=== PATIENT | female | born 1970 | race Caucasian/White ===

== ENCOUNTER 2018-07-07 06:07 | Emergency (ER) | payer OTHER, SELFPAY ==
[2018-07-07 06:08] VITALS: BP 178/89; PULSE 77; RESP 13; TEMP 36.7; O2SAT 98; BMI 39.2
--- NOTE | 2018-07-07 06:14 | EKG12_ITS ---
Test Reason : ARRHYTHMIA Blood Pressure : / mmHG Vent. Rate : 074 BPM Atrial Rate : 074 BPM P-R Int : 156 ms QRS Dur : 068 ms QT Int : 398 ms P-R-T Axes : 037 015 060 degrees QTc Int : 441 ms Normal sinus rhythm Nonspecific ST and T wave abnormality Abnormal ECG Confirmed by ELI TOLEDO, DONAL ([id number]), staff editor OLIVER DONG ([id number]) on 07/14/2018 2:22:14 PM Referred By: TATE Confirmed By:DONAL BENITEZ MD
--- NOTE | 2018-07-07 06:29 | RAD_ITS ---
STUDY: X-RAY CHEST REASON FOR EXAM: Female, 48 years old. Palpitations TECHNIQUE: Frontal and lateral views of the chest. COMPARISON: 10/06/2016 FINDINGS: The lungs are clear and expanded. There is no demonstrated pleural abnormality. Normal size heart. Normal mediastinum and alex. Normal visualized pulmonary arteries. Normal visualized aortic arch and descending thoracic aorta. Normal visualized thoracic spine. Normal visualized ribs, clavicles, and shoulders. There is no demonstrated abnormality of the visualized soft tissue structures of the upper abdomen. RAD/Chest PA and Lateral IMPRESSION: Normal x-ray examination of the chest. Electronically Signed: Jung Lynn MD at 7:11 EDT Tel , Service support ,
--- NOTE | 2018-07-07 06:29 | EKG12_ITS ---
Test Reason : CHEST PAIN Blood Pressure : / mmHG Vent. Rate : 070 BPM Atrial Rate : 070 BPM P-R Int : 164 ms QRS Dur : 066 ms QT Int : 400 ms P-R-T Axes : 009 -23 145 degrees QTc Int : 432 ms Normal sinus rhythm Septal infarct , age undetermined Inferior infarct , age undetermined Abnormal ECG Confirmed by ELI TOLEDO, DONAL ([id number]), scientific publications editor OLIVER DONG ([id number]) on 07/14/2018 2:04:57 PM Referred By: AMELIE Confirmed By:DONAL BENITEZ MD
--- NOTE | 2018-07-07 06:30 | ED.VISSUMM ---
- ER Visit Summary Date of Service: 07/07/18 Chief Complaint: Palpitations History of Present Illness: The patient is a 48 F who presents for palpitations overnight. Patient states last night she had several episodes where she felt like her heart was skipping a beat and racing. This morning she is having pain between her shoulder blades, generalized weakness and chest tightness. She states that she has had episodes of palpitations in the past, but over the last week they have been more prominent and now she had multiple more prolonged episodes during the night. She has had mild URI symptoms including a current ear infection that started last week, rhinorrhea, chills, and sweaty palms today. She took one regular aspirin last night and one this morning. She denies shortness of breath, abdominal pain, nausea or vomiting, dizziness or lightheadedness, fever. She feels generally weak. Patient denies history of coronary artery disease, hypertension, diabetes, high cholesterol or any other medical problems other than the heart spells where her heart skips beats periodically. She also has chronic ruptured left TM since childhood. Physical Examination: Vital signs: afebrile, hypertensive at 170/100, no hypoxia on room air General: well nourished, well developed, in no distress Skin: warm, dry, no rash, no pallor, no diaphoresis HEENT: normocephalic and atraumatic; PERRL, EOMI, moist mucous membranes Cardiovascular: regular rate and rhythm without murmurs, no peripheral edema, 2+ pulses all distal extremities Respiratory: No increased work of breathing, lungs are clear to auscultation bilaterally, no rales, rhonchi or wheezing Abdominal: Abdomen is soft, nontender with normoactive bowel sounds, no guarding or rebound, no masses MSK: Moves all extremities, no deformities, normal strength Neuro: Awake and alert, oriented ?4. No facial droop, sensation and motor function intact and symmetric Test Results: Abnormal Lab Results 07/07/18 07/07/18 07/07/18 06:10 06:10 06:10 WBC 9.9 RBC 4.45 Hgb 13.8 Hct 41.3 MCV 92.8 MCH 31.0 MCHC 33.4 RDW 13.2 RDW Differential 43.8 Plt Count 322 MPV 9.1 Immature Gran % (Auto) 0.200 Neut % (Auto) 71.1 H Lymph % (Auto) 19.6 [place] % (Auto) 7.6 Eos % (Auto) 1.3 Baso % (Auto) 0.2 Absolute Neuts (auto) 7.0 Absolute Lymphs (auto) 1.93 Total Counted Not Reportable PT 13.5 INR 1.0 APTT 29.1 Sodium 138 Potassium 3.8 Chloride 102 Carbon Dioxide 28.0 Anion Gap 8 BUN 13 Creatinine 0.67 Estim Creat Clear Calc 95.08 Est GFR (MDRD) Af Amer 121 Est GFR (MDRD) Non-Af 100 BUN/Creatinine Ratio 19.5 Glucose 94 Calcium 8.8 Troponin I 0.041 Clinical Impression(s) from Imaging Studies Chest X-Ray 07/07/18 06:29 IMPRESSION: Normal x-ray examination of the chest. Electronically Signed: Jung Lynn MD at 7:11 EDT Tel , Service support , Medications Given Sodium Chloride () 1,000 mls @ 250 mls/hr IV .Q4H KELBY Last Admin: 07/07/18 06:37 Dose: 250 mls/hr Discontinued Medications Nitroglycerin (Nitrostat) 0.4 mg SUBLINGUAL Q5M KELBY Stop: 07/07/18 06:41 Last Admin: 07/07/18 07:03 Dose: Not Given Admin: 07/07/18 07:03 Dose: Not Given Admin: 07/07/18 06:38 Dose: 0.4 mg Emergency Department Course and Treatment: Patient took aspirin prior to presentation. She is currently having 1/10 chest tightness and thus was given nitro. Her chest tightness with radiation to shoulder blades is concerning for possible cardiac etiology. Patient has very mild discomfort, and description of her symptoms does not sound as concerning for aortic dissection. She has symmetric pulses all distal extremities. She is also having URI symptoms along with her other symptoms. Chest pain workup performed. EKG showed sinus rhythm without ischemia or ectopy, unchanged from prior. Initial troponin of 0.041. When compared to patient's labs from 1 year ago during her chest pain workup, her troponin was 0.04 at that time as well. No leukocytosis, electrolyte derangements, or other lab abnormalities. Patient had resolution of her chest tightness after 1 nitro. Chest x-ray showed no infiltrates or effusions or other abnormalities. Patient has a HEART score of 3 for age, story, and risk factors of obesity; and patient was amenable to a 3-hour EKG and troponin repeat. 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 She is using homeopathic remedies at home. Patient will be signed out to the morning physician for follow-up of EKG and troponin. Final disposition pending these results. If repeat EKG and troponin are unchanged, patient is amenable to following up with her primary care doctor for outpatient stress test. Treatment Plan: [] Disposition: [] Impression: Chest tightness, intermittent palpitations, ruptured L TM This note was generated with [employer] dictation software. It may contain incorrect words, spelling, and punctuation that were not noted in review of the chart prior to signing ED Disposition - Plan for ED Patient: Chief Complaint: Palpitations Referrals: Mike Fonseca DO [Primary Care Provider] -
[2018-07-07] MEDS: 0.9% Normal Saline 1,000 ML 250 ML IV (06:37)
[2018-07-07 06:38] VITALS: BP 169/94; PULSE 75
[2018-07-07 06:39] VITALS: O2SAT 96
[2018-07-07 06:39] LABS: Absolute Lymphocyte Count 1.93 X10^3/ul (0.83-4.51); Basophil# 0.02 X10^3/uL; Basophil% 0.2 % (0-1); Eosinophil# 0.13 X10^3/uL; Eosinophils% 1.3 % (0-5); Hematocrit 41.3 % (37-47); Hemoglobin 13.8 g/dl (12.0-15.0); Lymphocyte # 1.93 X10^3/ul (4.0); Lymphocyte % 19.6 % (19-41); Mean Corp Hgb Conc 33.4 g/gl (32-36); Mean Corpuscular Volume 92.8 fL (81-99); Mean Platelet Vol. 9.1 fl (6.2-12.0); Monocyte# 0.75 X10^3/uL; Monocyte% 7.6 % (0-10); Neutrophil # 7.02 X10^3/uL (2.7-7.7); Neutrophil % 71.1 % (47-70); Platelet Count 322 K/mm3 (150-450); RBC Distribution Width CV 13.2 % (11.6-14.6); RBC Distribution Width SD 43.8 fl (35.1-43.9); Red Blood Count 4.45 M/mm3 (4.2-5.4); White Blood Count 9.9 K/mm3 (4.4-11.0)
[2018-07-07 06:50] LABS: BUN 13 mg/dL (7-18); Creatinine, Serum 0.67 mg/dL (0.55-1.02); Glucose 94 mg/dL (74-106)
[2018-07-07 06:51] LABS: Anion Gap 8 (5-15); BUN/Creat Ratio 19.5 RATIO (10-20); Calcium,Total 8.8 mg/dL (8.5-10.1); Chloride 102 mmol/L (98-107); EST Glomerular Filtration Rate 100 mL/min (>60); Est Glom Filt Rate - Afr Amer 121 mL/min (>60); Estimated Creatinine Clearance 95.08 ml/min; Potassium 3.8 mmol/L (3.5-5.1); Sodium Level 138 mmol/L (136-145)
[2018-07-07 06:52] LABS: POSITIVE COUNT NO; POSITIVE DIFFERENTIAL NO; POSITIVE MORPHOLOGY NO
[2018-07-07 06:55] LABS: Prothrombin Time (Protime)PT. 13.5 SECONDS (11.7-14.9)
[2018-07-07 06:56] LABS: Partial Thromboplast Time 29.1 Seconds (24.1-36.2)
[2018-07-07 07:51] VITALS: BP 148/82; PULSE 66; RESP 12; O2SAT 95
--- NOTE | 2018-07-07 09:10 | EKG12_ITS ---
Test Reason : PALPS Blood Pressure : / mmHG Vent. Rate : 074 BPM Atrial Rate : 074 BPM P-R Int : 166 ms QRS Dur : 072 ms QT Int : 426 ms P-R-T Axes : 033 009 058 degrees QTc Int : 472 ms Normal sinus rhythm Septal infarct , age undetermined Abnormal ECG Confirmed by ELI TOLEDO, DONAL ([id number]), tape editor OLIVER DONG ([id number]) on 07/14/2018 2:05:17 PM Referred By: AMELIE Confirmed By:DONAL BENITEZ MD
[2018-07-07 09:18] VITALS: BP 148/82; PULSE 68; RESP 12; O2SAT 96
--- NOTE | 2018-07-07 10:22 | ED.VISSUMM ---
- ER Visit Summary Date of Service: 07/07/18 Chief Complaint: [] History of Present Illness: The patient is a 48 F [] Physical Examination: [] Test Results: [] Emergency Department Course and Treatment: [] Treatment Plan: [] Disposition: [] Impression: [] This note was generated with [employer] dictation software. It may contain incorrect words, spelling, and punctuation that were not noted in review of the chart prior to signing ED Disposition - Plan for ED Patient: Disposition: Home or Assisted Living Chief Complaint: Palpitations Instructions: ED Palpitations Referrals: Mike Fonseca DO [Primary Care Provider] - 1 Week
[2018-07-07 10:29] VITALS: BP 135/89; PULSE 76; RESP 15; O2SAT 98
== END 2018-07-07 10:30 | disposition home or self-care (01) ==
PROVIDERS: Emergency Provider Emergency Medicine; Family Provider Family Medicine; PCP Family Medicine
DX: R07.89 Other chest pain (principal); R00.2 Palpitations; H72.92 Unspecified perforation of tympanic membrane, left ear; H66.90 Otitis media, unspecified, unspecified ear; R53.1 Weakness; E66.9 Obesity, unspecified
CPT/HCPCS: 71046; 80048; 84484; 85025; 85610; 85730; 93005; 96360; 96361; 99284; J7030; A4216

== ENCOUNTER 2018-12-16 17:56 | Emergency (ER) | payer OTHER, SELFPAY ==
[2018-12-16 17:56] VITALS: BP 169/104; PULSE 83; RESP 16; TEMP 36.4; O2SAT 97; BMI 37.8
--- NOTE | 2018-12-16 18:04 | EKG12_ITS ---
Test Reason : SOB Blood Pressure : / mmHG Vent. Rate : 076 BPM Atrial Rate : 076 BPM P-R Int : 168 ms QRS Dur : 076 ms QT Int : 426 ms P-R-T Axes : 046 017 059 degrees QTc Int : 479 ms Normal sinus rhythm Normal ECG Confirmed by CONY ARTIS ([id number]), editor managing director OLIVER DONG ([id number]) on 12/20/2018 5:00:15 PM Referred By: MANAV Confirmed By:CONY ARTIS
--- NOTE | 2018-12-16 18:04 | RAD_ITS ---
STUDY: X-RAY CHEST REASON FOR EXAM: Female, 48 years old. Chest tightness and shortness of breath TECHNIQUE: Single frontal view of the chest. COMPARISON: July 07, 2018 FINDINGS: The lungs are clear and expanded. There is no demonstrated pleural abnormality. Normal size heart. Normal mediastinum and alex. Normal visualized pulmonary arteries. Normal visualized aortic arch and descending thoracic aorta. Normal visualized thoracic spine. Normal visualized ribs, clavicles, and shoulders. There is no demonstrated abnormality of the visualized soft tissue structures of the upper abdomen. RAD/Chest 1 View (Portable) IMPRESSION: Normal x-ray examination of the chest. Electronically Signed: Reinier Lawrence MD at 18:54 EDT , Service support ,
[2018-12-16 18:07] VITALS: O2SAT 98
--- NOTE | 2018-12-16 18:07 | ED.DCSUM_ITS ---
- ER Visit Summary Date of Service: 12/16/18 Chief Complaint: Shortness of breath and chest tightness History of Present Illness: The patient is a 48 F who presents with shortness of breath and chest tightness. It started earlier today. She feels a tightness in the left side of her chest. It does not radiate. Nothing makes it better or worse. She feels a little bit short of breath with this. She has had a cough for the past month. Is been nonproductive. She also had a dizzy spell about 6 hours ago at home. She has an appointment with cardiology on Thursday. She has been seen a couple of times and has had negative cardiac workups in the past. She was told that she has hypertension but is currently not on any medications for it. Physical Examination: Vital signs reviewed. HEENT exam unremarkable. Heart is regular rate and rhythm without murmurs. Lungs are clear to auscultation. Abdomen is soft and nontender. Extremities reveal no edema. Peripheral pulses are equal. Skin exam normal. Neurologic exam normal. Test Results: EKG is normal sinus rhythm with rate of 76. No ST changes. Laboratory studies are normal. Troponin 0 0.035. Chest x-ray normal Emergency Department Course and Treatment: The patient's troponin rating as the last when she has ever had documented here. She took aspirin at home. Her PAMELA score is 1. She is PERC negative. I do not feel that this is cardiac in natu re. I do not feel it is a PE. She has cardiology follow-up on Thursday. She is to keep this appointment and will follow-up then. Treatment Plan: [] Disposition: Discharge Impression: Chest pain This note was generated with [employer] dictation software. It may contain incorrect words, spelling, and punctuation that were not noted in review of the chart prior to signing ED Disposition - Plan for ED Patient: Referrals: Mike Fonseca DO [Primary Care Provider] -
[2018-12-16 18:20] LABS: Absolute Lymphocyte Count 2.24 X10^3/ul (0.83-4.51); Absolute Neutrophil Count 5.3 X10^3/uL (2.0-7.7); Basophil# 0.02 X10^3/uL; Basophil% 0.2 % (0-1); Eosinophil# 0.13 X10^3/uL; Eosinophils% 1.6 % (0-5); Hematocrit 38.4 % (37-47); Hemoglobin 12.7 g/dl (12.0-15.0); Lymphocyte # 2.24 X10^3/ul (4.0); Lymphocyte % 27.4 % (19-41); Mean Corp Hgb Conc 33.1 g/gl (32-36); Mean Corpuscular Hgb 29.9 pg (27.0-32.0); Mean Corpuscular Volume 90.4 fL (81-99); Mean Platelet Vol. 8.9 fl (6.2-12.0); Monocyte% 6.1 % (0-10); Neutrophil # 5.28 X10^3/uL (2.7-7.7); Neutrophil % 64.5 % (47-70); Platelet Count 329 K/mm3 (150-450); RBC Distribution Width SD 42.4 fl (35.1-43.9); Red Blood Count 4.25 M/mm3 (4.2-5.4); White Blood Count 8.2 K/mm3 (4.4-11.0)
[2018-12-16 18:21] LABS: POSITIVE COUNT NO; POSITIVE DIFFERENTIAL NO; POSITIVE MORPHOLOGY NO
[2018-12-16 18:48] LABS: Anion Gap 8 (5-15); BUN 13 mg/dL (7-18); BUN/Creat Ratio 19.8 RATIO (10-20); Chloride 103 mmol/L (98-107); Creatinine, Serum 0.66 mg/dL (0.55-1.02); EST Glomerular Filtration Rate 102 mL/min (>60); Est Glom Filt Rate - Afr Amer 123 mL/min (>60); Estimated Creatinine Clearance 96.52 ml/min; Glucose 88 mg/dL (74-106); Potassium 3.5 mmol/L (3.5-5.1); Sodium Level 137 mmol/L (136-145)
--- NOTE | 2018-12-16 19:19 | ED.DEP ---
ED Disposition - Plan for ED Patient: Disposition: Home or Assisted Living Instructions: ED Chest Pain Atypical Unkn Cause Referrals: Mike Fonseca DO [Primary Care Provider] -
[2018-12-16 19:25] VITALS: BP 130/73; PULSE 74; RESP 14; O2SAT 97
== END 2018-12-16 19:26 | disposition home or self-care (01) ==
PROVIDERS: Emergency Provider Emergency Medicine; Family Provider Family Medicine; PCP Family Medicine
DX: R07.9 Chest pain, unspecified (principal); R06.00 Dyspnea, unspecified; R05 Cough; R06.02 Shortness of breath; I10 Essential (primary) hypertension
CPT/HCPCS: 71045; 80048; 84484; 85025; 93005; 99285; A4216

== ENCOUNTER → 2018-12-27 10:03 | Outpatient (CLI) | payer OTHER, SELFPAY ==
[2018-12-20 15:52] VITALS: BMI 39.0
[2018-12-27 11:27] LABS: AST(SGOT) 15 U/L (15-37); Alanine Aminotransfer ALT/SGPT 28 U/L (13-56); Albumin, Serum 3.7 g/dL (3.2-5.0); Alkaline Phosphatase 82 U/L (45-117); Bilirubin, Direct 0.06 mg/dL (0.00-0.30); Cholesterol 194 mg/dL (200); Globulin 4.1 g/dL (2.2-4.2); High Density Lipoprotein 57 mg/dL; Protein, Total 7.8 g/dL (6.4-8.2); Triglycerides 113 mg/dL; Very Low Density Lipoprotein 23 mg/dL (5-40)
== END ==
PROVIDERS: Family Provider Family Medicine; PCP Family Medicine; Referring Provider Internal Medicine Cardiovascular Disease; Visit Provider Internal Medicine Cardiovascular Disease
DX: R07.9 Chest pain, unspecified (principal); Z13.220 Encounter for screening for lipoid disorders
CPT/HCPCS: 36415; 80061; 80076

== ENCOUNTER → 2019-01-06 | Outpatient (CLI) | payer OTHER, SELFPAY ==
[2018-12-20 15:52] VITALS: BMI 39.0
--- NOTE | 2019-01-06 09:50 | ECHOCS_ITS ---
Reason For Study: CP Procedure This was a 2D Doppler, Color Flow transthoracic echocardiogram. Exam performed in department. Left Ventricle Normal size and thickness. The estimated ejection fraction is 75 %. Stage 1 diastolic dysfunction. No regional wall motion abnormalities noted. Right Ventricle Normal size and thickness. Normal systolic function. Atria Normal left atrium. Normal right atrium. Normal atrial septum. Mitral Valve The mitral valve is structurally normal. No prolapse or stenosis seen. Trivial mitral valve insufficiency. Tricuspid Valve Normal tricuspid valve. Unable to estimate RV systolic pressure due to inadequate jet, pulmonary artery pressure probably normal. Aortic Valve Normal aortic valve. Trisinus/trileaflet aortic valve. Pulmonic Valve Normal pulmonic valve. Great Vessels Normal aortic root. Normal arch. Normal inferior vena cava. Inferior vena cava collapse with sniff. Pericardium/Pleural No pericardial effusion. Medication 22 gauge I.V. with prn adaptor inserted into right arm. Diluted definity 1.5ml given slow IV push to enhance endocardial definition. MMode/2D Measurements & Calculations LVIDd: 4.0 cm IVSd: 1.6 cm Ao root diam: 3.2 cm LVIDs: 2.2 cm LVPWd: 1.3 cm LA dimension: 4.2 cm RVDd: 3.5 cm FS: 45.1 % LAV(MOD-bp): 78.2 ml LA A4 area: 21.8 cm2 RA A4 area: 15.6 cm2 LAV(MOD-bp) Indexed: 36.9 ml/m2 LAV(MOD-sp2): 88.3 ml LAV(MOD-sp4): 69.9 ml Time Measurements MV dec time: 0.27 sec Doppler Measurements & Calculations MV E max zachariah: 71.7 cm/sec Lat Peak E' Zachariah: 11.1 cm/sec Med Peak E' Zachariah: 10.2 cm/sec MV A max zachariah: 81.2 cm/sec E/E' lat: 6.5 E/E' med: 7.0 MV E/A: 0.88 MV V2 max: 104.9 cm/sec MV P1/2t max zachariah: 91.3 cm/sec Ao V2 max: 143.8 cm/sec MV max P.4 mmHg MV P1/2t: 73.4 msec Ao max P.3 mmHg MV V2 mean: 56.6 cm/sec MV dec slope: 364.4 cm/sec2 Ao V2 mean: 89.8 cm/sec MV mean P.5 mmHg Ao mean P.7 mmHg MV V2 VTI: 28.5 cm MVA(P1/2t): 3.0 cm2 Ao V2 VTI: 29.0 cm LV V1 max: 117.3 cm/sec PA V2 max: 110.7 cm/sec LV V1 max P.5 mmHg LV V1 mean P.8 mmHg LV V1 mean: 78.7 cm/sec LV V1 VTI: 27.6 cm Interpretation Summary The estimated ejection fraction is 75 %. Stage 1 diastolic dysfunction. Trivial mitral valve insufficiency. Unable to estimate RV systolic pressure due to inadequate jet, pulmonary artery pressure probably normal. The study was technically difficult. There is no comparison study available. Contrast injection was performed. Ordering Physician: Jame Chavez Referring Physician: Jame Chavez Performed By: Song Santos RCS
--- NOTE | 2019-01-06 09:50 | STEWCON_ITS ---
Reason For Study: CHEST PAIN Stress Results Protocol: Baljinder Protocol WITH DEFINITY Maximum Predicted HR: 171 bpm Target HR: 145 bpm % Maximum Predicted HR: 108 % DurationHeart Rate Stage (mm:ss) (bpm) BP Comment BASELINE 85 150/701.5CC DEFINITY STAGE 1 3:00 139 182/104 STAGE 2 3:00 160 190/94 STAGE 3 3:00 184 200/1001 CC DEFINITY RECOVERY 110 160/88 Stress Duration: 9:00 mm:ss Maximum Stress HR: 184 bpm Baseline Echocardiogram Findings The estimated ejection fraction is 65 %. Stress Echo Wall motion Data Resting WM Intermediate WM Stress WM Resting Wall Motion Wall Motion Stress No regional wall motion No regional wall motion abnormalities noted. abnormalities noted. EKG Data The baseline ECG displays normal sinus rhythm. The patient exercised according to the regular Baljinder protocol for a total duration of 9:00. The maximum heart rate attained was 187 beats per minute. This was 109% of maximum predicted heart rate. The patient exercised into stage 4 of the Baljinder protocol. At peak exercise, upsloping ST changes only were noted, which did not meet the criteria for ischemia. No clinical angina was noted. Interpretation Summary The estimated ejection fraction is 65 %. Normal, adequate, treadmill echocardiogram. Negative for ischemia by EKG and echocardiographic criteria. No anginal symptoms noted. Rare PVC noted. Hypertensive blood pressure response to exercise. Test terminated due to the attainment of target heart rate and dyspnea. Final LVEF is 75%. Decreased sensitivity due to poor echo windows requiring Definity enhancing agent. No complications The study was technically difficult. Contrast injection was performed. Ordering Physician: Jame Chavez MD Referring Physician: Jame Chavez Performed By: Song Santos RCS
== END | disposition home or self-care (01) ==
LOC: CVS 09:49
PROVIDERS: Family Provider Family Medicine; PCP Family Medicine; Referring Provider Internal Medicine Cardiovascular Disease; Visit Provider Internal Medicine Cardiovascular Disease
DX: R07.9 Chest pain, unspecified (principal)
CPT/HCPCS: 93017; 93306; 93350; Q9957; A4216; C8928; C8929

== ENCOUNTER → 2021-05-06 | Outpatient (CLI) | payer OTHER, SELFPAY ==
[2021-05-06 19:39] LABS: Probe Check PASS; Specimen Processing Control PASS
== END | disposition home or self-care (01) ==
LOC: LABSPEC 16:04
PROVIDERS: PCP Family Medicine; Visit Provider Physician Assistant
DX: Z11.52 Encounter for screening for COVID-19 (principal)
CPT/HCPCS: 87635; U0005; U0003

== ENCOUNTER → 2022-01-13 | Outpatient (CLI) | payer SELFPAY, OTHER ==
--- NOTE | 2022-01-13 15:48 | BI_ITS ---
MAMMOGRAPHY - BILATERAL SCREENING REASON FOR EXAM: Female, 51 years old. Routine annual screening examination. PERTINENT HISTORY: Non-contributory. TECHNIQUE: Digital bilateral breast bob (3D mammographic acquisition) in the CC and MLO projections. 2-D mediolateral oblique (MLO) and craniocaudad (CC) views of both breasts were obtained. CAD: Full Field Digital Mammography with Computer Added Detection was performed. COMPARISON: No comparison mammograms available at this time. If any prior films become available, an addendum to this report can be generated. FINDINGS: Breast Composition: There are scattered areas of fibroglandular density. There are no dominant masses or suspicious calcifications. No other significant abnormalities are identified. BI/SCRN MAMM (CAD)W/BOB BILAT IMPRESSION: Negative screening mammogram. Yearly followup mammogram recommended. (A) ASSESSMENT CATEGORY: BIRADS Category 1: Negative. A letter regarding these results will be sent to the patient by the facility within 30 days. Approximately 10% of breast cancers are not detected by mammography. A normal mammogram should not delay biopsy of a clinically suspicious abnormality. [id number] Electronically Signed: Chris Belle, at 17:22 EDT ,
== END | disposition home or self-care (01) ==
PROVIDERS: PCP Family Medicine; Referring Provider Family Medicine; Visit Provider Family Medicine
DX: Z12.31 Encounter for screening mammogram for malignant neoplasm of breast (principal)
CPT/HCPCS: 77063; 77067

== ENCOUNTER → 2025-01-31 | Outpatient (CLI) | payer SELFPAY, OTHER ==
--- NOTE | 2025-01-31 13:15 | MRI_ITS ---
PROCEDURE: SPINE LUMBAR (ROUTINE) 01/31/2025 REASON FOR EXAM: LOW BACK PAIN TECHNIQUE: Multiplanar and multisequence images were obtained without IV contrast administration. FINDINGS: Normal lumbar vertebral body height. Grade 1 subluxation of L4 upon L5 and retrolisthesis of L1 upon L2. Normal conus. There is no compression fracture. L1-L2 demonstrates minimal annular bulging without nerve root impingement. Mild canal narrowing. At L2-3 mild canal narrowing also present from concentric annular bulge. At L3-4 degenerative annular bulging also results in mild canal narrowing with mild inferior foraminal narrowing on each side. At L4-5 facet arthrosis and concentric bulge also produce mild spinal stenosis without foraminal nerve root impingement. Mild left lateral recess narrowing. At L5-S1 disc space narrowing without central stenosis. Moderate bony narrowing of the left L5 neural foramen MRI/Spine Lumbar (Routine) IMPRESSION: Mild degenerative changes with mild canal narrowing but no focal nerve root com pression. See above comments. No paravertebral soft tissue masses are seen Reading Location: [id number]
== END | disposition home or self-care (01) ==
PROVIDERS: PCP Family Medicine; Referring Provider Nurse Practitioner Family; Visit Provider Nurse Practitioner Family
DX: M54.50 Low back pain, unspecified (principal)
CPT/HCPCS: 72148